=== PATIENT | female | born 1990 | race African-American/Black ===

== ENCOUNTER 2017-07-13 07:32 | Emergency (ER) | payer MEDICAID, SELFPAY ==
[~2017-07-13] VITALS: Ht 167.6 cm; Wt 56.7 kg
[~2017-07-13 07:32] MED LIST: DOXYCYCLINE MO100 MG ORAL; NORCO 5-325 TA1 EACH ORAL; [UNRECOGNIZED DRUG - REMARK]
[2017-07-13 07:44] VITALS: BP 116/77
[2017-07-13 08:25] LABS: APPEARANCE,URINE SLIGHTLY CLOUDY; BILIRUBIN, URINE NEGATIVE (NEGATIVE); GLUCOSE, URINE (UA) NEGATIVE (NEGATIVE); KETONES,URINE NEGATIVE (NEGATIVE); LEUKOCYTE ESTERASE ,URINE 2+ (NEGATIVE); NITRITE,URINE NEGATIVE (NEGATIVE); PH,URINE 6 (4.5-8.0); PROTEIN,URINE 1+ (NEGATIVE); UROBILINOGEN,URINE 4 MG/DL (0.0-1.0)
[2017-07-13 08:34] LABS: COLOR,URINE YELLOW
[2017-07-13] MEDS ORDERED: Acetaminophen 500mg (ES) tab ORAL ONE (08:45)
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
--- NOTE | 2017-07-13 09:22 | Diagnostic Imaging Report ---
Indication: Back pain Technique: 3 views of the lumbar spine Comparison: None Findings:Bony alignment is normal. Vertebral body heights are preserved. Disc spaces are preserved. Pedicles are intact. Sacral arches are preserved. Sacroiliac joint spaces are preserved Impression: Negative
[2017-07-13] MEDS ORDERED: IBUPROFEN600 MG ORAL (09:40)
[2017-07-13] MEDS ORDERED: CYCLOBENZAPRINE10 MG ORAL (09:40)
[2017-07-13 09:50] VITALS: BP 108/69
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
== END 2017-07-13 09:50 | disposition home or self-care (01) ==
LOC: EMR 08:05
DX: M50.222 Other cervical disc displacement at C5-C6 level (principal); S39.012A Strain of muscle, fascia and tendon of lower back, initial encounter; V43.52XA Car driver injured in collision with other type car in traffic accident, initial encounter; Y93.9 Activity, unspecified; Y92.410 Unspecified street and highway as the place of occurrence of the external cause
CPT/HCPCS: 72020; 72125; 81003; 81025; 99284